=== PATIENT | female | born 1930 | race Caucasian/White ===

== ENCOUNTER 2017-12-08 11:05 | Emergency (ER) | payer MEDICARE, BC ==
[2017-12-08 11:24] VITALS: BP 142/79
--- NOTE | 2017-12-08 11:48 | UC ---
Lester Johnson Gabriel, scribed for Loida Trevino MD on 12/08/17 at 1135 . Cardiac HPI - HPI Summary HPI Summary: This patient is a 87 year old F presenting to [facility] accompanied by her with a chief complaint of shortness of breath and chest pain since yesterday morning. The patient rates the squeezing pain 4/10 in severity. Patient reports SOB, light headedness, nausea, decreased PO intake, confusion, and dizziness. Patient denies that symptoms are affecting her sleep. Pt was instructed to double her dose of excelon medication yesterday, her family believes this is effecting her. The patient is a poor historian and seems to be confused. Additionally her family has little to no knowledge of her history. Took 325mg of aspirin this morning. Stress test in 2011 done for evaluation of abnormal EKG; nuclear study was normal. - History of Current Complaint Chief Complaint: UCChestPain Stated Complaint: CHEST PAIN SOB Time Seen by Provider: 12/08/17 11:25 Hx Obtained From: Patient, Family/Sheet Turner Onset/Duration: Lasting Days, Still Present Timing: Constant Initial Severity: Mild Current Severity: Mild Pain Intensity: 4 Chest Pain Location: Diffuse Character: Pressure/Squeezing Associated Signs & Symptoms: Positive: Chest Pain, Dizziness, SOB - Risk Factors AMI/ACS Risk Factors: Sedentary Lifestyle - Allergy/Home Medications Allergies/Adverse Reactions: Allergies Allergy/AdvReac Type Severity Reaction Status Date / Time albuterol Allergy Unknown Verified 12/08/17 11:27 Reaction Details clarithromycin [From Biaxin] Allergy Unknown Verified 12/08/17 11:27 Reaction Details MS Cat Hair Extract Allergy Sneezing Verified 12/08/17 11:27 [Cat Hair Extract] MS Epinephrine [Epinephrine] Allergy Unknown Verified 12/08/17 11:27 Reaction Details MS Iodinated Contrast Media Allergy Unknown Verified 12/08/17 11:27 [CONTRAST DYE] Reaction Details MS Morphine [Morphine] Allergy Unknown Verified 12/08/17 11:27 Reaction Details MS Rofecoxib [From Vioxx] Allergy Unknown Verified 12/08/17 11:27 Reaction Details Penicillins Allergy Unknown Verified 12/08/17 11:27 Reaction Details petrolium Allergy Difficulty Uncoded 12/08/17 11:27 Breathing Home Medications: Home Medications Acetaminophen [Tylophen] 1 - 2 tab PO TID PRN 12/08/17 [History Confirmed ] Aspirin 1 tab PO DAILY 12/08/17 [History Confirmed 12/08/17] Cholecalciferol (Vitamin D3) [Vitamin D3] 1 tab PO DAILY 12/08/17 [History Confirmed 12/08/17] Pimavanserin Tartrate [Nuplazid] 2 tab PO QPM 12/08/17 [History Confirmed ] Polyethylene Glycol 3350* [Miralax*] 1 packet PO DAILY PRN 12/08/17 [History Confirmed 12/08/17] Rivastigmine CAP(NF) [Exelon (NF)] 2 cap PO BID 12/08/17 [History Confirmed ] Sertraline HCl [Zoloft] 1 tab PO DAILY 12/08/17 [History Confirmed 12/08/17] PMH/Surg Hx/FS Hx/Imm Hx Other Cardiovascular History: mitral valve disorder, palpitations Other Neurological History: Parkinsons - Surgical History Surgical History: Yes Surgery Procedure, Year, and Place: HYSTERECTOMY, APPENDECTOMY, DEVIATED SETUM, PROLAPSED BLADDER, T&A, CATARACTS BILATERAL - Family History Known Family History: Positive: Cardiac Disease, Hypertension - Social History Occupation: Retired Lives: With Family Alcohol Use: None Substance Use Type: None Smoking Status (MU): Never Smoked Tobacco Review of Systems Constitutional: Other - decreased PO intake Skin: Negative Eyes: Negative ENT: Negative Respiratory: Shortness Of Breath Cardiovascular: Chest Pain Gastrointestinal: Nausea Genitourinary: Negative Motor: Negative Neurovascular: Negative Musculoskeletal: Negative Neurological: Other - dizziness, light headedness, confusion Psychological: Negative Is Patient Immunocompromised?: No All Other Systems Reviewed And Are Negative: Yes Physical Exam Triage Information Reviewed: Yes Appearance: Ill-Appearing - Elderly woman, frail, Parkinsonian affect. Not acutely distressed., Pain Distress - mild Vital Signs: Initial Vital Signs Temp 99.5 F 12/08/17 11:16 Pulse 69 12/08/17 11:16 Resp 20 12/08/17 11:16 BP 142/79 12/08/17 11:16 Pulse Ox 98 12/08/17 11:16 Vital Signs Reviewed: Yes Eyes: Positive: Conjunctiva Clear ENT: Positive: Pharynx normal Neck: Positive: Supple, Nontender, No Lymphadenopathy Respiratory: Positive: Lungs clear, Normal breath sounds Cardiovascular: Positive: RRR, No Murmur, Pulses Normal Abdomen Description: Positive: Nontender, No Organomegaly, Soft Bowel Sounds: Positive: Present Neurological Exam: Other Neurological: Positive: Alert Psychological Exam: Other - flat affect. Diagnostics - EKG Cardiac Rate: NL Cardiac Rhythm: Sinus: New - at 68 BPM, Other Rhythm: New - no prolonged QTc , mild ST depression v4 v5, Ectopy: None ST Segment: Non-Specific - Differential Diagnoses - Chest Pain Differential Diagnosis/HQI/PQRI: Acute SC, ACS, Angina - Clinical Impression Provider Diagnoses: shortness of breath and chest pain with non-specific EKG changes. Transferred to ER for evaluation. Discharge - Discharge Plan Condition: Stable Disposition: TRANS HIGHER LVL OF CARE FAC Referrals: Ge Robbins MD [Primary Care Provider] - The documentation as recorded by the Lester harris Gabriel accurately reflects the service I personally performed and the decisions made by , Loida Trevino MD.
== END 2017-12-08 11:42 | disposition short-term general hospital (02) ==
LOC: UCEAST 11:05
DX: R06.02 Shortness of breath (principal); R07.9 Chest pain, unspecified; R94.31 Abnormal electrocardiogram [ECG] [EKG]; Z88.8 Allergy status to other drugs, medicaments and biological substances; Z88.1 Allergy status to other antibiotic agents; Z91.048 Other nonmedicinal substance allergy status; G20 Parkinson's disease
CPT/HCPCS: 93005; 99213; G0463

== ENCOUNTER 2017-12-08 12:11 | Emergency (ER) | payer MEDICARE, BC ==
--- NOTE | 2017-12-08 13:30 | RAD ---
INDICATION: Chest pain COMPARISON: Most recent comparison chest x-rays dated January 31, 2015 TECHNIQUE: Single AP portable view of the chest was obtained. FINDINGS: Image quality is compromised due to the relative inferiority of a portable chest x-ray. The heart and mediastinum exhibit normal size and contour. Again seen is mild calcified atherosclerosis overlying the arch of the aorta. The lungs are grossly clear. There is no evidence of a large pleural effusion. Visualized bones are normal for the patient's age. IMPRESSION: No radiographic evidence for acute cardiopulmonary abnormality on this portable chest x-ray.
[2017-12-08 13:39] LABS: ABS Basophils 0.1 10^3/ul (0-0.2); ABS Eosinophils 0.2 10^3/ul (0-0.6); ABS Monocytes 0.4 10^3/ul (0-0.8); ABS Nucleated RBC 0 10^3/ul; Eosinophil % 4.8 % (0-6); Hematocrit 36 % (35-47); Hemoglobin 12.2 g/dl (12.0-16.0); Lymphocyte % 21.5 % (25-47); Mean Corpuscular HGB Conc 34 g/dl (31-36); Mean Corpuscular Hemoglobin 30 pg (27-31); Mean Corpuscular Volume 88 fL (80-97); Mean Platelet Volume 8 um3 (7.4-10.4); Nucleated Red Blood Cells % 0; Platelet Count 196 10^3/ul (150-450); Red Blood Count 4.11 10^6/ul (4.0-5.4); Red Cell Distribution Width 15 % (10.5-15); White Blood Count 4.7 10^3/ul (3.5-10.8)
[2017-12-08 13:46] LABS: INR 0.97 (0.77-1.02)
[2017-12-08 13:59] LABS: EGFR Non-African American 52.9 (>60)
[2017-12-08 16:42] VITALS: BP 111/60
--- NOTE | 2017-12-08 21:32 | ED ---
Jaron Johnson Stephanie, scribed for Lebron Ronquillo MD on 12/08/17 at 1255 . HPI Chest Pain - HPI Summary HPI Summary: The pt is an 87 y/o F BIBA to the ED with c/o CP that began yesterday morning. Symptoms include SOB, L neck pain and dizziness. The pt reports going to [facility]. The pt states she is not currently having CP. - History of Current Complaint Chief Complaint: EDGeneral Time Seen by Provider: 12/08/17 12:22 Hx Obtained From: Patient, Family/Shine Worker Onset/Duration: Started Days Ago - 1, Still Present Timing: Intermittent Current Severity: None Pain Intensity: 0 Pain Scale Used: 0-10 Numeric Character: Tightness Aggravating Factor(s): Nothing Alleviating Factor(s): Nothing Associated Signs and Symptoms: Positive: Dizziness, Shortness of Breath, Other: - L neck pain - Allergy/Home Medications Allergies/Adverse Reactions: Allergies Allergy/AdvReac Type Severity Reaction Status Date / Time albuterol Allergy Unknown Verified 12/08/17 11:27 Reaction Details cat dander Allergy Unknown Verified 12/08/17 13:08 Reaction Details clarithromycin [From Biaxin] Allergy Unknown Verified 12/08/17 11:27 Reaction Details codeine Allergy Unknown Verified 12/08/17 13:12 Reaction Details epinephrine Allergy Unknown Verified 12/08/17 13:08 Reaction Details Iodinated Contrast- Oral and Allergy Unknown Verified 12/08/17 13:10 IV Dye Reaction Details morphine Allergy Difficulty Verified 12/08/17 13:09 Breathing Penicillins Allergy Unknown Verified 12/08/17 11:27 Reaction Details rofecoxib [From Vioxx] Allergy Unknown Verified 12/08/17 13:11 Reaction Details petrolium Allergy Difficulty Uncoded 12/08/17 11:27 Breathing Home Medications: Home Medications Acetaminophen [Acetaminophen Extra Strength] 500 - 1,000 mg PO TID PRN 12/08/17 [History Confirmed 12/08/17] Aspirin TAB* [Aspirin 325 MG TAB*] 325 mg PO DAILY 12/08/17 [History Confirmed 12/08/17] Cholecalciferol TAB* [Vitamin D TAB*] 1,000 unit PO DAILY 12/08/17 [History Confirmed 12/08/17] Pimavanserin Tartrate [Nuplazid] 34 mg PO BEDTIME 12/08/17 [History Confirmed ] Polyethylene Glycol 3350* [Miralax*] 17 gm PO DAILY 12/08/17 [History Confirmed 12/08/17] Rivastigmine CAP(NF) [Exelon (NF)] 3 mg PO QAM 12/08/17 [History Confirmed 12/08] Sertraline* [Zoloft*] 50 mg PO QAM 12/08/17 [History Confirmed 12/08/17] PMH/Surg Hx/FS Hx/Imm Hx Endocrine/Hematology History: Denies: Hx Diabetes Cardiovascular History: Denies: Hx Hypertension, Hx Pacemaker/ICD Respiratory History: Denies: Hx Asthma History: Denies: Hx Renal Disease Musculoskeletal History: Reports: Hx Osteoporosis Sensory History: Denies: Hx Hearing Aid Psychiatric History: Denies: Hx Panic Disorder - Surgical History Surgery Procedure, Year, and Place: HYSTERECTOMY, APPENDECTOMY, DEVIATED SETUM, PROLAPSED BLADDER, T&A, CATARACTS BILATERAL Infectious Disease History: No Infectious Disease History: Denies: Traveled Outside the [place] in Last 30 Days - Family History Known Family History: Positive: Cardiac Disease, Hypertension - Social History Occupation: Retired Lives: [facility] Alcohol Use: None Substance Use Type: Reports: None Smoking Status (MU): Never Smoked Tobacco Review of Systems Negative: Fever Positive: Chest Pain Positive: Shortness Of Breath Positive: Other - L neck pain Neurological: Other - dizziness All Other Systems Reviewed And Are Negative: Yes Physical Exam - Summary Physical Exam Summary: Appearance: The patient is well-nourished in no acute distress and in no acute pain. The pt seems confused. Skin: The skin is warm and dry and skin color reflects adequate perfusion. HEENT: The head is normocephalic and atraumatic. The pupils are equal and reactive. The conjunctivae are clear and without drainage. Nares are patent and without drainage. Mouth reveals moist mucous membranes and the throat is without erythema and exudate. The external ears are intact. The ear canals are patent and without drainage. The tympanic membranes are intact. Neck: the neck is supple with full range of motion and non-tender. There are no carotid bruits. There is no neck vein distension. Respiratory: Chest is non-tender. Lungs are clear to auscultation and breath sounds are symmetrical and equal. Cardiovascular: Heart is regular rate and rhythm. There is no murmur or rub auscultated. There is no peripheral edema and pulses are symmetrical and equal. Abdomen: The abdomen is soft and non-tender. There are normal bowel sounds heard in all four quadrants and there is no organomegaly palpated. Musculoskeletal: There is no back tenderness noted. Extremities are non-tender with full range of motion. There is good capillary refill. There is no peripheral edema or calf tenderness elicited. Neurological: Patient is alert and oriented to person, place and time. The patient has symmetrical motor strength in all four extremities. Cranial nerves are grossly intact. Deep tendon reflexes are symmetrical and equal in all four extremities. Psychiatric: The patient has an appropriate affect and does not exhibit any anxiety or depression. Triage Information Reviewed: Yes Vital Signs On Initial Exam: Initial Vitals Temp Pulse Resp BP Pulse Ox 97.7 F 70 16 172/75 99 12/08/17 12:15 12/08/17 12:15 12/08/17 12:15 12/08/17 12:15 12/08/17 12:15 Vital Signs Reviewed: Yes Diagnostics - Vital Signs Vital Signs Temp Pulse Resp BP Pulse Ox 12/08/17 12:19 73 21 98 12/08/17 12:18 172/75 12/08/17 12:15 97.7 F 70 16 172/75 99 - Laboratory Lab Results: Lab Results 12/08/17 12/08/17 12/08/17 Range/Units 13:30 13:30 13:30 WBC 4.7 (3.5-10.8) 10^3/ul RBC 4.11 (4.0-5.4) 10^6/ul Hgb 12.2 (12.0-16.0) g/dl Hct 36 (35-47) % MCV 88 (80-97) fL MCH 30 (27-31) pg MCHC 34 (31-36) g/dl RDW 15 (10.5-15) % Plt Count 196 (150-450) 10^3/ul MPV 8 (7.4-10.4) um3 Neut % (Auto) 63.8 (38-83) % Lymph % (Auto) 21.5 L (25-47) % Peach % (Auto) 8.1 H (0-7) % Eos % (Auto) 4.8 (0-6) % Baso % (Auto) 1.8 (0-2) % Absolute Neuts (auto) 3.0 (1.5-7.7) 10^3/ul Absolute Lymphs (auto) 1.0 (1.0-4.8) 10^3/ul Absolute Monos (auto) 0.4 (0-0.8) 10^3/ul Absolute Eos (auto) 0.2 (0-0.6) 10^3/ul Absolute Basos (auto) 0.1 (0-0.2) 10^3/ul Absolute Nucleated RBC 0 10^3/ul Nucleated RBC % 0 INR (Anticoag Therapy) (0.77-1.02) Sodium 140 (133-145) mmol/L Potassium 4.0 (3.5-5.0) mmol/L Chloride 106 (101-111) mmol/L Carbon Dioxide 28 (22-32) mmol/L Anion Gap 6 (2-11) mmol/L BUN 23 (6-24) mg/dL Creatinine 0.99 H (0.51-0.95) mg/dL Est GFR ( Amer) 68.1 (>60) Est GFR (Non-Af Amer) 52.9 (>60) BUN/Creatinine Ratio 23.2 H (8-20) Glucose 90 (70-100) mg/dL Lactic Acid 0.6 (0.5-2.0) mmol/L Calcium 9.9 (8.6-10.3) mg/dL Total Bilirubin 0.50 (0.2-1.0) mg/dL AST 19 (13-39) U/L ALT 13 (7-52) U/L Alkaline Phosphatase 57 (34-104) U/L Troponin I 0.00 (<0.04) ng/mL Total Protein 6.9 (6.4-8.9) g/dL Albumin 4.0 (3.2-5.2) g/dL Globulin 2.9 (2-4) g/dL Albumin/Globulin Ratio 1.4 (1-3) TSH 2.09 (0.34-5.60) mcIU/mL 12/08/17 12/08/17 Range/Units 13:30 15:47 WBC (3.5-10.8) 10^3/ul RBC (4.0-5.4) 10^6/ul Hgb (12.0-16.0) g/dl Hct (35-47) % MCV (80-97) fL MCH (27-31) pg MCHC (31-36) g/dl RDW (10.5-15) % Plt Count (150-450) 10^3/ul MPV (7.4-10.4) um3 Neut % (Auto) (38-83) % Lymph % (Auto) (25-47) % Peach % (Auto) (0-7) % Eos % (Auto) (0-6) % Baso % (Auto) (0-2) % Absolute Neuts (auto) (1.5-7.7) 10^3/ul Absolute Lymphs (auto) (1.0-4.8) 10^3/ul Absolute Monos (auto) (0-0.8) 10^3/ul Absolute Eos (auto) (0-0.6) 10^3/ul Absolute Basos (auto) (0-0.2) 10^3/ul Absolute Nucleated RBC 10^3/ul Nucleated RBC % INR (Anticoag Therapy) 0.97 (0.77-1.02) Sodium (133-145) mmol/L Potassium (3.5-5.0) mmol/L Chloride (101-111) mmol/L Carbon Dioxide (22-32) mmol/L Anion Gap (2-11) mmol/L BUN (6-24) mg/dL Creatinine (0.51-0.95) mg/dL Est GFR ( Amer) (>60) Est GFR (Non-Af Amer) (>60) BUN/Creatinine Ratio (8-20) Glucose (70-100) mg/dL Lactic Acid (0.5-2.0) mmol/L Calcium (8.6-10.3) mg/dL Total Bilirubin (0.2-1.0) mg/dL AST (13-39) U/L ALT (7-52) U/L Alkaline Phosphatase (34-104) U/L Troponin I 0.00 (<0.04) ng/mL Total Protein (6.4-8.9) g/dL Albumin (3.2-5.2) g/dL Globulin (2-4) g/dL Albumin/Globulin Ratio (1-3) TSH (0.34-5.60) mcIU/mL Result Diagrams: 12/08/17 13:30 12/08/17 13:30 Lab Statement: Any lab studies that have been ordered have been reviewed, and results considered in the medical decision making process. - Radiology CXR Xray Interpretation: No Acute Changes Radiology Interpretation Completed By: Radiologist - No radiographic evidence for acute cardiopulmonary abnormality on this portable chest x-ray. - EKG : Cardiac Rate: NL EKG Rhythm: Sinus Rhythm - 66 BPM EKG Interpretation: horizontal axis, nonspecific septal changes Chest Pain Course/Dx - Course Course Of Treatment: Ms. Dawson presented from [facility] with vague C/O. She has parkinson's dementia and the history is always difficult. She was started on Exelon 2 weeks ago and yesterday it was increased. She has had a decreased appetite for several days. Her W/U here was negative including two troponins. I spoke with Dr. Schuler who felt that the Exelon could be causing GI symptoms and recommended stopping it to see if she improves. - Diagnoses Provider Diagnoses: Chest pain Discharge - Discharge Plan Condition: Stable Disposition: HOME Patient Education Materials: Chest Pain (ED) Referrals: Ge Robbins MD [Primary Care Provider] - 3 Days The documentation as recorded by the Jaron harris Stephanie accurately reflects the service I personally performed and the decisions made by me, Lebron Ronquillo MD.
== END 2017-12-08 17:35 | disposition home or self-care (01) ==
LOC: ED 12:11
DX: R07.9 Chest pain, unspecified (principal); R42 Dizziness and giddiness; R06.02 Shortness of breath; M54.2 Cervicalgia
CPT/HCPCS: 36415; 71045; 80053; 83605; 84443; 84484; 85025; 85610; 93005; 99282

== ENCOUNTER 2019-01-18 18:53 | Inpatient (IN) | payer MEDICARE, BC ==
[2019-01-18] MEDS ORDERED: NS 0.9% 1000 ML** 1,000 ML IV ONE (18:56)
[2019-01-18] MEDS ORDERED: Metoprolol Tartrate IV* 1 MG/ML 5 ML VIAL IV ONE (18:59)
--- NOTE | 2019-01-18 19:02 | ED ---
Neurological HPI - HPI Summary HPI Summary: LEVEL 5 CAVEAT: HPI LIMITED DUE TO PT CONDITION, EXTREMIS. An 88 y/o F brought in by ambulance BLS presents to ED s/p unwitnessed fall at approx 1500 with stroke-like symptoms onset [employer] DEVELOPER. Her was in the other room and heard her fall. After the fall, the patient took a 30 minute nap afterwards. Per EMS: pt was c/o of R-sided arm and hematoma to R-sided forehead , but her speech was fine; however, when EMS unloaded pt at ED, they noticed the patient's condition had declined: she had gaze deviation, L-sided facial droop, slurred speech. PMHx: Parkinsons. No blood thinners. 1849: ED provider met EMS and patient immediately upon arrival in ED. 1854: Code Alvino called. 1904: ED provider confirmed bleed on CT when taking scan. - History of Current Complaint Stated Complaint: FALL/HEAD AND SHOULDER PAIN PER EMS Time Seen by Provider: 01/18/19 18:56 Hx Obtained From: Family/Integrated Circuit Design Engineer, EMS Hx From Patient Unobtainable Due To: Extremis Onset/Duration: Sudden Onset, Still Present Timing: Constant Onset Severity: Severe Current Severity: Severe Character: Impaired Speech, Visual Changes, Other: - facial droop - Allergy/Home Medications Allergies/Adverse Reactions: Allergies Allergy/AdvReac Type Severity Reaction Status Date / Time albuterol Allergy Unknown Verified 01/18/19 19:35 Reaction Details cat dander Allergy Unknown Verified 01/18/19 19:35 Reaction Details clarithromycin [From Biaxin] Allergy Unknown Verified 01/18/19 19:35 Reaction Details codeine Allergy Unknown Verified 01/18/19 19:35 Reaction Details epinephrine Allergy Unknown Verified 01/18/19 19:35 Reaction Details Iodinated Contrast- Oral and Allergy Unknown Verified 01/18/19 19:35 IV Dye Reaction Details morphine Allergy Difficulty Verified 01/18/19 19:35 Breathing Penicillins Allergy Unknown Verified 01/18/19 19:35 Reaction Details rofecoxib [From Vioxx] Allergy Unknown Verified 01/18/19 19:35 Reaction Details petrolium Allergy Difficulty Uncoded 12/08/17 11:27 Breathing Home Medications: Home Medications QUEtiapine TAB* [Seroquel 25 MG TAB*] 25 mg PO EVERY OTHER DAY 01/18/19 [ History Confirmed 01/18/19] QUEtiapine TAB* [Seroquel 25 MG TAB*] 50 mg PO BEDTIME 01/18/19 [History Confirmed 01/18/19] PMH/Surg Hx/FS Hx/Imm Hx Previously Healthy: No - Parkinson's Endocrine/Hematology History: Denies: Hx Diabetes Cardiovascular History: Denies: Hx Hypertension, Hx Pacemaker/ICD Respiratory History: Denies: Hx Asthma History: Denies: Hx Renal Disease Musculoskeletal History: Reports: Hx Osteoporosis Sensory History: Denies: Hx Hearing Aid Psychiatric History: Denies: Hx Panic Disorder - Surgical History Surgery Procedure, Year, and Place: HYSTERECTOMY, APPENDECTOMY, DEVIATED SETUM, PROLAPSED BLADDER, T&A, CATARACTS BILATERAL - Family History Known Family History: Positive: Cardiac Disease, Hypertension - Social History Occupation: Retired Lives: With Family Alcohol Use: None Substance Use Type: Reports: None Smoking Status (MU): Never Smoked Tobacco Review of Systems - ROS Summary Review of Systems Summary: LEVEL 5 CAVEAT: ROS LIMITED DUE TO PT CONDITION, EXTREMIS. Neurological: Other - gaze deviation, L-sided facial droop Positive: Slurred Speech All Other Systems Reviewed And Are Negative: No Physical Exam - Summary Physical Exam Summary: Constitutional: Well-developed, Well-nourished, Alert. (-) Distressed, No obvious traumatic injuries Skin: Warm, Dry HENT: Normocephalic; Atraumatic Eyes: Conjunctiva normal Neck: Musculoskeletal ROM normal neck. (-) JVD, (-) Stridor, (-) Tracheal deviation Cardio: Rhythm regular, rate normal, Heart sounds normal; Intact distal pulses; The pedal pulses are 2+ and symmetric. Radial pulses are 2+ and symmetric. (-) Murmur Pulmonary/Chest wall: Effort normal. (-) Respiratory distress, (-) Wheezes, (-) Rales Abd: Soft. (-) Tenderness, (-) Distension, (-) Guarding, (-) Rebound Musculoskeletal: (-) Edema, (-) Bony tenderness, FROM of all extremities Lymph: (-) Cervical adenopathy Neuro: L sided hemiparesis, forced gaze deviation to R Psych: Mood and affect Normal Triage Information Reviewed: Yes Vital Signs Reviewed: Yes - Alphonse Coma Scale Best Eye Response: 4 - Spontaneous Best Motor Response: 6 - Obeys Commands Best Verbal Response: 2 - Incomprehensible Words Coma Scale Total: 12 Diagnostics - Laboratory Result Diagrams: 01/18/19 19:01 01/18/19 19:01 Lab Statement: Any lab studies that have been ordered have been reviewed, and results considered in the medical decision making process. - CT BRAIN CT CT Interpretation Completed By: Radiologist Summary of CT Findings: IMPRESSION: 1. Within the right cerebral hemisphere, there is a large hyperdense acute hematoma with surrounding edema. This hematoma measures 7.4 x 3.9 x 7.5 cm. Differential considerations include post- traumatic hemorrhage, hemorrhagic conversion of infarction, and hypertensive bleed, although additional hemorrhagic pathology cannot be excluded. A follow- up head CT in 12-24 hours is recommended. 2. Patchy areas of subarachnoid/intra -axial hemorrhage are identified within the bilateral cerebral hemispheres. 3. There is 6 mm of midline shift to the left. 4. Soft tissue swelling/hematoma of the right frontal scalp. 5. There are scattered foci of hypodensity, likely representing small vessel ischemic disease in a patient this age. 6. Paranasal sinus disease is noted above. ED provider has reviewed this report. C SPINE CT Interpretation Completed By: Radiologist Summary of CT Findings: IMPRESSION: 1. No acute cervical spine fracture or subluxation. 2. The cervical lordosis is straightened. 3. Spondylosis is visualized at multiple cervical levels. 4. There is an 8mm hypodense nodule within the right thyroid lobe. ED provider has reviewed this report. CHEST CT CT Interpretation Completed By: Radiologist Summary of CT Findings: IMPRESSION: 1. The inferior right scapula is fractured. Clinical correlation is. recommended. 2. An air-fluid level is visualized within the esophagus, with mild esophageal distention. This is suggestive of decreased motility or reflux. 3. Atelectatic change is identified within the both lower lobes, with minimal atelectatic change in the left upper lobe. 4. Within the left upper lobe of the lung, there is a 2-3 mm nodule. See recommendations below. 5. Old fractures are identified of the right fifth and seventh ribs. 6. Additional findings described above. ED provider has reviewed this report. - EKG 1917 Cardiac Rate: NL - 92 bpm EKG Rhythm: Sinus Rhythm Summary of EKG Findings: no STEMI NIH Scale - NIH Scale Level of Consciousness: Alert/Keenly Responsive Ask Patient the Month and His/Her Age: Neither Correct/Aphasic Ask Pt to Open/Close Eyes and Croze Cutter/Release Non-Paretic Hand: One Correctly Best Gaze (Only Horizontal Eye Movement): Forced Deviation Visual Field Testing: Bilateral Hemianopia Facial Paresis-Pt to Smile & Close Eyes or Grimace Symmetry: Complete Paralysis Motor Function - Right Arm: No Drift-Holds 10 Seconds Motor Function - Left Arm: No Movement Motor Function - Right Leg: No Drift-Holds 10 Seconds Motor Function - Left Leg: No Movement Limb Ataxia-Must be out of Proportion to Weakness Present: Present in Two Limbs Sensory (Use Pinprick to Test Arms/Legs/Trunk/Face): Severe to Total Loss Best Language (Describe Picture, Name Items): Mute/Global Aphasia Dysarthria (Read Several Words): Slurs Some Words Extinction and Inattention: Profound Herberth-Inattention Total Score: 29 Re-Evaluation - Re-Evaluation 1 Re-Evaluation Time: 19:16 Change: Unchanged Comment: Discussing pt's end-of-life wishes with family. Per family, pt had stated she did not want resuscitation. 2 Re-Evaluation Time: 20:30 Change: Unchanged Comment: Going over MOLST form with family. Pt sleeping, she responds to painful stimulus. L-sided hemiparesis remains. 3 Re-Evaluation Time: 21:50 Change: Unchanged Comment: Family states they want patient to be comfortable. Still awaiting Dr. Ortega, neuro surgery, to come see patient and family. 4 Re-Evaluation Time: 21:58 Change: Unchanged Comment: Completing MOLST form. Fifth Eval Re-Evaluation Time: 22:05 Comment: somnolent on 2154 eval, poss due to progression and/or reglan Course/Dx - Course Course Of Treatment: Pt is an 88 y/o F brought in by ambulance s/p unwitnessed fall onset approx 1700. EMS states pt was c/o R-sided back and RUE pain, but upon arrival at ED, EMS made provider aware that patient's condition was deteriorating, and showing stroke-like symptoms. 1855: Code De Oliveira called. PE found L-sided hemiparesis, forced gaze deviation to R. Pt was slurring her speech. NIH: 29. GCS: 12. 1905: Visualized bleed on CT. Attempted to discern advanced directives from family, health care proxy form was unclear, felt that prognosis and options could be better discussed when neurosurgeon arrives. Family discussed with me that patient was poorly ambulatory, had severe dementia with hallucinations, and generally poor quality of life at baseline. 1914: Consulted with Dr. Ortega, neuro surg, who feels surgery is most likely contraindicated given her advanced directives. He is currently operating , will see pt in ED after his current case. I did discuss at length three times with family members, including the , and sons and daughter. We discussed the patient's advanced rectus, also her baseline functional status which was poor. We discussed the most significant femurs that she did not want any heroic measures, did not want any artificial life support. The family uniformly felt that she would not want invasive procedures. We came to a joint understanding that the patient would want comfort care measures. A MOLST was completed that reflects these wishes. I did discuss with Dr. Ortega, also with Dr. Kamille West, both of whom will consult on the patient tonight. - Diagnoses Provider Diagnoses: Intracranial hemorrhage During the Visit The Following Alert/Code Occurred: Meenakshi Marsh - Called at 1854 - Physician Notifications Discussed Care Of Patient With: Amelia Suero - neuro surgery Time Discussed With Above Provider: 19:08 Instructed by Provider To: Other - Made OR nurse aware of large cerebral hemorrhage. At 1914, Jordan returned call: Feels surgery is most likely contraindicated given her advanced directives. He is currently operating, will see pt in ED after his current case - Critical Care Time Critical Care Time: 30-74 min Discharge - Sign-Out/Discharge Documenting (check all that apply): Patient Departure Patient Received Moderate/Deep Sedation with Procedure: No - Discharge Plan Condition: Critical Disposition: ADMITTED TO [facility] Referrals: Ge Robbins MD [Primary Care Provider] - - Billing Disposition and Condition Condition: CRITICAL Disposition: Admitted to [facility] - Attestation Statements Document Initiated by Scribe: Yes Documenting Scribe: Denise Medley Provider For Whom Scribe is Documenting (Include Credential): Dr. Ross Ramirez MD Scribe Attestation: I, Denise Medley, scribed for Dr. Ross Ramirez MD on 01/18/19 at 2206. Scribe Documentation Reviewed: Yes Provider Attestation: The documentation as recorded by the scribe, Denise Medley accurately reflects the service I personally performed and the decisions made by me, Dr. Ross Ramirez MD Status of Scribe Document: Viewed
--- OUTSIDE RECORDS SUMMARY | 2019-01-18 19:02 | XMS REPORT | Continuity of Care Document ---
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 Active Onset: 01/14/2012 Hyperlipidemia Christina Reeves M.D. Active Onset: 01/14/2012 Electrocardiogram abnormal Christina Reeves M.D. Active Onset: 01/14/2012 Chest pain Christina Reeves M.D. Active Family History Date Family Member(s) Observation Comments General Cancer General Hypertension General Heart Disease Father due to Unknown Causes () Mother due to Cancer () Social History Type Date Description Comments Sex Unknown ETOH Use Occasionally consumes alcohol ETOH Use Denies alcohol use ETOH Use Occasionally consumes alcohol Tobacco Use Start: Unknown Patient has never smoked Recreational Drug Use Denies Drug Use Smoking Status Reviewed: 01/10/19 Patient has never smoked Allergies, Adverse Reactions, Alerts Date Description Reaction Status Severity Comments 01/14/2012 Penicillin Active 01/14/2012 Albuterol Active 01/14/2012 Epinephrine Active 01/14/2012 vioxx Active 01/14/2012 contrast dye Active 01/14/2012 Codeine Active 01/14/2012 Morphine Active 02/04/2012 Perfume Active Medications Medication Date Status Form Strength Qnty SIG Indications Ordering Provider Seroquel 01/10/ Active Tablets 25mg 30tab one every R44.1 Quentin Carter 2018 s night at [place], bedtime for M.D. 1 week then 2 qhs Nuplazid 08/17/ Active Capsules 34mg 90cap 1 tab by Quentin Carter 2017 s mouth every , day M.D. Sertraline HCL 06/28/ Active Tablets 25mg 90tab 3 by mouth Quentin Carter 2017 s every day Jaxon Schuler. Carbidopa-Levod 06/28/ Active Tablets 25-100mg 90tab 1 po qam pc G20 Quentin burns 2018 s for 1 wk Ganga, then 1 bid M.D. pc for 1 wk then 1 tid pc Flonase / Active Suspension 50mcg/Act 1unit 1 Unknown 0000 s intranasal puff to each nostril daily prn Vit D3 00/ Active 1000Iu one po qd Unknown 0000 Miralax / Active Powder 3350NF 17 gm every Unknown 0000 day mixed w/ 8 oz water/juice prn Aspirin / Active Tablets DR 325mg 4 tablets Unknown 0000 daily. Acetaminophen 00/ Active Tablets 500mg 1-2 tabs 3x Unknown 0000 a day as needed Sertraline HCL 05/26/ Hx Tablets 25mg 270ta 3 by mouth Quentin Carter 2018 - bs every day Ganga, 06/28/ M.D. 2018 Carbidopa-Levod 04/03/ Hx Tablets 25-100mg 90tab 1 po qam pc G20 Quentin burns 2018 - s for 1 wk Ganga, 04/03/ then 1 bid M.DDianna 2018 pc for 1 wk then 1 tid pc Rivastigmine 11/18/ Hx Capsules 1.5mg 120ca 2 tablets Quentin Carter Tartrate 2018 - ps bid-family Ganga, 02/07/ is unsure M.D. 2018 if she is still taking this.. Nuplazid 08/05/ Hx Tablets 17mg 60tab 2 po qd Quentin Carter 2016 Ganga, 08/17/ M.DDianna 2017 Quetiapine 05/25/ Hx Tablets 25mg 60tab 2 tabs by R44.1 Quentin Richmond 2016 mouth every Ganga, 08/17/ night at M.D. 2017 bedtime Toprol XL 02/03/ Hx Tablets ER 25mg 30tab 1 po qd Qutaybeh 2011 - 24HR s S. 05/25/ Leandro Heath M.D. Estradiol / Hx Tablets 0.5mg 90tab 1 po qd Unknown 0000 - s 2016 Trazodone HCL / Hx Tablets 50mg 30tab 1/2 tablet Unknown 0000 - s at bedtime 11/18/ as needed 2018 Omeprazole / Hx Capsules DR 20mg 90cap 1 po qd Unknown 0000 - s 2016 Sertraline HCL / Hx Tablets 25mg 90tab 2 by mouth Quentin Carter - s every day Ganga, 05/26/ (50MG) M.DDianna 2017 Immunizations Description No Information Available Vital Signs Date Vital Result Comment 01/10/2019 11:30am Height 59 inches 4'11" Weight 97.12 lb Heart Rate 80 /min BP Systolic 120 mmHg BP Diastolic 66 mmHg BMI (Body Mass Index) 19.6 kg/m2 06/28/2018 2:58pm Height 59 inches 4'11" Weight 102.00 lb Heart Rate 72 /min BP Systolic 118 mmHg BP Diastolic 66 mmHg Respiratory Rate 16 /min BMI (Body Mass Index) 20.6 kg/m2 04/03/2018 9:48am Height 59 inches 4'11" Weight 100.00 lb Heart Rate 80 /min BP Systolic 136 mmHg BP Diastolic 68 mmHg Respiratory Rate 16 /min BMI (Body Mass Index) 20.2 kg/m2 02/08/2018 1:50pm Height 59 inches 4'11" Weight 100.00 lb Heart Rate 80 /min BP Systolic Sitting 126 mmHg BP Diastolic Sitting 70 mmHg Respiratory Rate 16 /min BMI (Body Mass Index) 20.2 kg/m2 11/02/2017 1:45pm Height 59 inches 4'11" Weight 100.00 lb Heart Rate 76 /min BP Systolic 138 mmHg BP Diastolic 76 mmHg Respiratory Rate 14 /min BMI (Body Mass Index) 20.2 kg/m2 09/14/2017 2:22pm Height 59 inches 4'11" Weight 100.00 lb Heart Rate 64 /min BP Systolic 132 mmHg BP Diastolic 78 mmHg Respiratory Rate 14 /min BMI (Body Mass Index) 20.2 kg/m2 07/29/2017 3:04pm Height 59 inches 4'11" Weight 100.00 lb Heart Rate 80 /min BP Systolic Sitting 168 mmHg BP Diastolic Sitting 94 mmHg Respiratory Rate 16 /min BMI (Body Mass Index) 20.2 kg/m2 05/25/2017 9:41am Height 59 inches 4'11" Weight 101.00 lb Heart Rate 84 /min BP Systolic Sitting 136 mmHg BP Diastolic Sitting 80 mmHg Respiratory Rate 14 /min BMI (Body Mass Index) 20.4 kg/m2 02/04/2012 8:15am Height 59 inches 4'11" Weight 116.00 lb Heart Rate 76 /min BP Systolic 118 mmHg BP Diastolic 66 mmHg BMI (Body Mass Index) 23.4 kg/m2 01/14/2012 2:35pm Height 59 inches 4'11" Weight 115.00 lb Heart Rate 71 /min BP Systolic Sitting 138 mmHg L BP Diastolic Sitting 62 mmHg L BMI (Body Mass Index) 23.2 kg/m2 Results Description No Information Available Procedures Date Code Description Status 02/13/2018 81229 EKG, Interpretation Only Completed 01/20/2012 80809 Holter Monitor Review (24 hr)dr review & interp only Completed 01/20/2012 82415 Treadmill Interp/Report Only Completed 01/20/2012 77332 Stress Test Supervsn W/Out I/R Completed 01/18/2012 93749 Color Flow Doppler/Interp & Reprt Completed 01/18/2012 10660 Pulse Wave/Continuous-Interp.RPT Completed 01/18/2012 99737 ECHO Transthorasic Realtime 2D W Doppler & Color Flow Hosp Completed 01/14/2012 26072 EKG Tracing & Interpretation Completed 10/27/2010 66016 ECHO Transthoracic, Real-Time 2D With Doppler And Color Completed Flow 10/22/2010 18063 Treadmill Interp/Report Only Completed 10/22/2010 89999 Stress Test Supervsn W/Out I/R Completed 10/19/2010 14066 ECHO Stress Test Incl Perf Contiuous ekg Monitoring W/Phys Completed Superv Encounters Type Date Location Provider Dx Diagnosis Office Visit 06/28/2018 [facility] Quentin Schuler Mira Parkinson' s 2:45p [facility] disease R44.1 Visual hallucinations Office Visit 04/03/2018 9:45a [facility] Haroon Carter [facility] M.D. disease R44.1 Visual hallucinations Z79.899 Other addiction therapist (current) drug therapy Office Visit 02/08/2018 1:45p [facility] Haroon Carter G20 [facility] M.D. disease R44.1 Visual hallucinations Z79.899 Other addiction therapist (current) drug therapy Office Visit 11/02/2017 Clay Carter R44.1 Visual 1:45p Haroon Schuler M.D. hallucinations [facility] [place] [id number] Parkinson's disease Office Visit 09/14/2017 Clay Carter R44.1 Visual 2:30p Neurologic Fercho Schuler hallucinations [facility] G2 Parkinson's disease Office 07/29/2017 Neurohospitalist Quentin Carter R44.1 Visual Visit 2:45p Clinic Fercho Schuler hallucinations [facility] Parkinson's disease Office Visit 05/25/2017 10:00a [facility] Haroon Gar [facility] M.D. disease R44.1 Visual hallucinations Office Visit 02/04/2012 8:40a [facility] Christina S. 786.50 Pain Chest Fercho Reeves Unspec 272.4 Hyperlipidemia Other Unspec 427.69 Premature Beats Other 424.0 Mitral Valve Disorder Office 01/20/2012 Clay Vasquez S. 794.31 Electrocardiogram Visit 9:30a Savannah Reeves M.D. (ECG) (EKG) Abnormal 786.05 Shortness Of Breath Office Visit 01/14/2012 2:40p [facility] Christina S. 786.50 Pain Hyun Reeves M.D. Unspec 794.31 Electrocardiogram (ECG) (EKG) Abnormal 272.4 Hyperlipidemia Other Unspec 427.69 Premature Beats Other Office Visit 10/19/2010 3:30p [facility] Qutaybeh S. 786.05 Shortness Of Fercho Reeves Breath 786.50 Pain Chest Unspec 272.4 Hyperlipidemia Other Unspec Plan of Treatment Future Appointment(s):03/21/2019 9:45 am - Quentin Schuler M.D. at [facility]01/10/2019 - Quentin Schuler M.D.R44.1 Visual hallucinationsNew Medication:Seroquel 25 mg - one every night at bedtime for 1 week then 2 qhsFollow up:1-2 monthsRecommendations:decrease nuplazid to 1 tab a day for 1 week then stop Nuplazid. The following night start Seroquel ( quetiapine) and follow directions on the uikhaG71.83 Dementia with Lewy usjpavY77.0 Anorexia
[2019-01-18 19:13] LABS: ABS Basophils 0.1 10^3/ul (0-0.2); ABS Eosinophils 0.1 10^3/ul (0-0.6); ABS Lymphocytes 1.2 10^3/ul (1.0-4.8); ABS Monocytes 0.9 10^3/ul (0-0.8); ABS Neutrophils 8.8 10^3/ul (1.5-7.7); ABS Nucleated RBC 0 10^3/ul; Eosinophil % 1.1 %; Hematocrit 34 % (33-41); Hemoglobin 11.3 g/dL (12.0-16.0); Lymphocyte % 11.2 %; Mean Corpuscular HGB Conc 33 g/dL (31-36); Mean Corpuscular Hemoglobin 29 pg (27-31); Mean Corpuscular Volume 88 fL (80-97); Mean Platelet Volume 8.4 fL (7.4-10.4); Nucleated Red Blood Cells % 0; Platelet Count 245 10^3/uL (150-450); Red Blood Count 3.86 10^6 /uL (3.70-4.87); Red Cell Distribution Width 15 % (10.5-15); White Blood Count 11.1 10^3/uL (3.5-10.8)
[2019-01-18] MEDS ORDERED: levETIRAcetam 1000MG IVPREMIX* 1,000 MG/100 ML BAG IVPB ONE (19:15)
[2019-01-18 19:19] LABS: Activated Partial Thrombo Time 25.4 seconds (26.0-36.3); INR 0.94 (0.77-1.02)
[2019-01-18 19:28] LABS: Albumin 3.9 g/dL (3.2-5.2); Albumin/Globulin Ratio 1.1 (1-3); BUN/Creatinine Ratio 37.1 (8-20); Calcium 9.6 mg/dL (8.6-10.3); EGFR African American 59.7 (>60); EGFR Non-African American 49.3 (>60); Globulin 3.4 g/dL (2-4); HDL Cholesterol 61.6 mg/dL; Potassium 4.3 mmol/L (3.5-5.0); Total Bilirubin 0.4 mg/dL (0.2-1.0); Total Protein 7.3 g/dL (6.4-8.9)
[2019-01-18 19:30] LABS: Troponin I 0.01 ng/mL (<0.04)
[2019-01-18] MEDS ORDERED: Ondansetron INJ* 2 MG/ML VIAL IV ONE (19:51)
[2019-01-18] MEDS ORDERED: Metoclopramide IV* 5 MG/ML 2 ML VIAL ONE (21:32)
[2019-01-18] MEDS ORDERED: Metoclopramide IV* 5 MG/ML 2 ML VIAL IV SLOW PU ONE (21:34)
[2019-01-18] MEDS ORDERED: LORazepam INJ* 2 MG/ML 1 ML VIAL IV PUSH PRN (23:11)
[2019-01-18] MEDS ORDERED: Ondansetron INJ* 2 MG/ML VIAL IV PRN (23:11)
[2019-01-18] MEDS ORDERED: Acetaminophen SUPP* 650 MG SUPP PR PRN (23:11)
[2019-01-18] MEDS ORDERED: HYDROmorphone INJ1* 1 MG/ML SYRINGE IV SLOW PU PRN (23:12)
[2019-01-18 23:38] VITALS: BP 113/60
[2019-01-19] MEDS ORDERED: Scopolamine 1.5 mg* PATCH TRANSDERM SCH
--- NOTE | 2019-01-19 01:31 | HP ---
CC: Dr. Robbins * HISTORY AND PHYSICAL: DATE OF ADMISSION: 01/18/19 TIME OF EVALUATION: 2300 PRIMARY CARE PHYSICIAN: Dr. Robbins. CHIEF COMPLAINT: Fall and unresponsiveness. HISTORY OF PRESENT ILLNESS: This is an 88-year-old female with past medical history of end-stage Parkinson's, who presented to the emergency room after having a significant fall. The , the [id number], the 4 sons, and the daughter are all at the bedside who provided the history. States that she has been declining over the past several months, does not recognize people, falling daily, dependent of all her ADLs, having very minimal mobility as well. Decrease in appetite, mainly drinking Ensure. The states today she had an insignificant fall in the kitchen around 5 p.m., complained of right shoulder pain and went down and took a nap. Around 5:30 to 6 o'clock, they noted she was not right. When EMS arrived, they noted a left facial droop, slurred speech, and right side gaze deviation. At that time, on arrival to the emergency room, mic figueroa was called and her head CT was read as large hyperdense acute hematoma with surrounding edema measuring 7.[address] Suero was consulted. Due to the patient's poor quality of life and functional status prior to her arrival and now with rapid deterioration of her neurologic status, the family decided to make her comfort care. The patient, while in her short stay in the emergency room, became more unresponsive, vomiting, and gurgling respirations. As mentioned, due to her unresponsiveness , unable to get a review of systems. The patient was given Zofran 8 mg, Lopressor 5 mg, Reglan 10 mg, and 1000 mg of Keppra. PAST MEDICAL HISTORY: 1. Parkinson's with behavioral disturbance. 2. Depression. 3. Osteoporosis. MEDICATIONS: 1. Seroquel 25 mg every other day. 2. 50 mg at bedtime. 3. MiraLAX 17 g daily as needed. 4. Tylenol 500 to 1000 three times a day as needed. 5. Zoloft 50 mg daily. 6. Vitamin D 1000 units daily. 7. Aspirin 325 mg daily. ALLERGIES: ALBUTEROL, cat dander, CLARITHROMYCIN, CODEINE, EPINEPHRINE, CONTRAST, MORPHINE, PENICILLIN, VIOXX, petroleum. FAMILY HISTORY: Reviewed and noncontributory. SOCIAL HISTORY: As mentioned. The patient lives at home with her , 5 children and in-laws who help with her, she is dependent on all her ADLs. No history of smoking, alcohol, or illicit drug use. Her healthcare proxy is her Pb and her son Quentin. Code status: Her MOLST form was completed this evening to be DNR/DNI, comfort measures only. REVIEW OF SYSTEMS: Unable to be obtained due to the patient being unresponsive. PHYSICAL EXAMINATION GENERAL: The patient is in no acute distress, resting comfortably, intermittent gurgling respiration sound, shallow respirations. VITAL SIGNS: Temp 97.9, pulse rate 26, respiratory rate 19, oxygen saturation is 91% on 6 L, blood pressure 137/79. HEENT: Head: Normocephalic. Pupils are fixed and nonreactive. Conjunctivae anicteric. Oropharynx: Unable to visualize oropharynx. NECK: Supple. No lymphadenopathy. RESPIRATORY: Diminished breath sounds. Clear respiratory effort. CARDIAC: Regular rate and rhythm. Soft systolic murmur heard throughout. ABDOMEN: Soft, nontender, nondistended. EXTREMITIES: Her right upper extremity is spastic, not moving any extremities. Not following any commands, unresponsive to voice and tactile stimuli. DIAGNOSTIC STUDIES/LAB DATA: White count 11.1, hemoglobin 11.3, hematocrit 34 , platelets 245, INR is 0.94. Sodium 139, potassium 4.3, chloride 104, bicarb 26, BUN 39, creatinine 1.05, glucose 123. Radiographic Data: Within the right cerebral hemisphere, there is a large hyperdense acute hematoma with surrounding edema. This hematoma measures 7.4 x 3.9 x 7.5. Differential considerations include posttraumatic hemorrhage, hemorrhagic conversion of infarction, and hypertensive bleed, although additional hemorrhagic pathology cannot be excluded. Patchy areas of subarachnoid intraaxial hemorrhage are identified within the bilateral cerebral hemispheres, 6 mm midline shift, soft tissue swelling, hematoma of the right frontal scalp. There are scattered foci of hypodensity, likely represent small vessel ischemic disease in the patient. ASSESSMENT: This is an 88-year-old female with past medical history of end- stage Parkinson's, who presents after having a fall, found to have a large hyperdense intraparenchymal bleed. 1. Intraparenchymal hemorrhage. Assessment: The family and the have decided to make the patient comfort care. She is unresponsive. Discussed comfort measures, admitting her with symptom control including Ativan as needed. We will do Dilaudid in the setting of her MORPHINE allergy as needed for work of breathing, although she appears comfortable with no work of breathing. We will start her on scopolamine patch for increased secretions. Family has requested a diesel engine mechanic apprentice to come in. I do not think the patient is stable enough to be transferred out at this time. Next 24 hours will determine if she is stable enough to be transferred out to hospice and comfort measures. 2. DVT prophylaxis not indicated. 3. Diet: Unrestricted. 4. Code status as discussed, comfort measure. PATIENT TIME: Greater than 60 minutes was spent doing the history and physical , more than half the time spent in direct patient contact. [id number]/CPS #: [id number] BAN
[2019-01-19] MEDS ORDERED: oxyCODONE ORAL.SOLN* 5 MG/5 ML UDC PO PRN (08:35)
--- NOTE | 2019-01-19 12:10 | PN ---
Subjective Date of Service: 01/19/19 Interval History: Patient is not arousable and unable to participate in history. The patient's , her children, and their spouses are at bedside. They report that the patient has not awoken from sleep nor shown signs of discomfort or pain. She has appeared comfortable since her admission. They mention that she feels warm and ask if her temperature can be taken once to check. Objective Active Medications: Acetaminophen (Tylenol Supp*) 650 mg HI Q4H PRN PRN Reason: FEVER Hydromorphone HCl (Dilaudid Inj1s*) 0.5 mg IV SLOW PU Q2H PRN PRN Reason: PAIN Lorazepam (Ativan Inj*) 0.5 mg IV PUSH Q4H PRN PRN Reason: Anxiety/Agitation Ondansetron HCl (Zofran Inj*) 4 mg IV Q6H PRN PRN Reason: NAUSEA/VOMITING Oxycodone HCl (Oxycodone Oral.Soln*) 5 mg PO Q6H PRN PRN Reason: Pain/SOB Pharmacy Profile Note (Scopolamine Patch Remove*) 1 note PATCH OFF .AFTER 72 HOURS BELL Scopolamine (Transderm-Scop 1.5 Mg Patch*) 1 patch TRANSDERM Q72H BELL Last Admin: 01/19/19 00:45 Dose: 1 patch Vital Signs - 8 hr 01/19/19 01/19/19 01/19/19 05:00 05:02 06:00 Temperature Respiratory 18 20 21 Rate 01/19/19 01/19/19 08:35 08:36 Temperature 100 F 99.7 F Respiratory Rate Oxygen Devices in Use Now: None Appearance: Elderly white female asleep in hospital bed, appearing comfortable and in NAD Eyes: - - unable to assess Ears/Nose/Mouth/Throat: Mucous Membranes Moist Neck: NL Appearance and Movements; NL JVP Respiratory: Symmetrical Chest Expansion and Respiratory Effort, Clear to Auscultation Cardiovascular: NL Sounds; No Murmurs; No JVD, RRR Abdominal: - - abdomen soft and nondistended Extremities: No Edema Skin: No Rash or Ulcers, - - skin is warm, dry, intact Neurological: - - patient is not arousable to voice or touch Result Diagrams: 01/18/19 19:01 01/18/19 19:01 Assess/Plan/Problems-Billing Assessment: 88 yo white female with PMHx parkinson's with behavior disturbance, depression, and osteoporosis was brought to the ED by EMS with facial droop, slurred speech and gaze deviation. In the ED she became increasingly unresponsive and was found to have intraparenchymal brain hematoma 7.4x3.9x7.5 cm. Patient's family placed the patient on comfort measures only. - Patient Problems (1) Intraparenchymal hematoma of brain Code(s): S06.360A - TRAUM HEMOR CEREB, W/O LOSS OF CONSCIOUSNESS, INIT SNOMED Code(s): 799679183 Comment: -patient fell in home and later presented to ED with neurological sxs. CT brain confirmed intraparenchymal hematoma size 7.4x3.9x7.5 cm -neurosurgery was consulted and family placed patient on comfort measures -palliative consult placed -given patient's morphine allergy, dilaudid is used as IV prn pain control; if pt loses IV access oxycodone oral solution has been ordered prn (2) Comfort measures only status Code(s): Z51.5 - ENCOUNTER FOR PALLIATIVE CARE SNOMED Code(s): 33288228331204 Comment: -temperature has been checked per family's request and pt was without a fever. The family was assisted by nursing staff in use of the thermostat if desired (3) DVT prophylaxis Code(s): OHX0239 - SNOMED Code(s): 776751570 Comment: -not indicated in comfort measures (4) DNR (do not resuscitate)
--- NOTE | 2019-01-19 15:36 | CONSULT ---
Palliative / Hospice Consult Ordering Provider: Lani Briseno - PCP-Ros[facility] - Subjective Code Status: DNR Advance Directives Location: In Chart MOLST Part A Completed: Yes - on chart MOLST Part E Completed:: Yes - on chart - History or Present Illness History or Present Illness: 88 yo female with end stage Parkinson's disease s/p fall brought to ER unresponsive. Family had noted she had been declining, eating less and falling more. PMH is significant for depression and osteoporosis. Ekg nsr, Ct brain showed new hemorrhage. Spinal CT neg, Chest CT scapula fx middle LESIA old fracture 5th & 7th rib, H/H 11.3/34, BUN/Cr 39/1.05 egfr 49.3 tprot 7.3 and alb 3.9. Pt has been 71yrs and had 7 children 6 living and many grandchildren. All history is from medical records and family, pt is unable to communicate. Family elected to pursue comfort care measures. Lab Values: Abnormal Lab Results 01/18/19 01/18/19 01/18/19 19:01 19:01 19:01 WBC 11.1 H RBC 3.86 Hgb 11.3 L Hct 34 MCV 88 MCH 29 MCHC 33 RDW 15 Plt Count 245 MPV 8.4 Neut % (Auto) 79.1 Lymph % (Auto) 11.2 Cuming % (Auto) 7.8 Eos % (Auto) 1.1 Baso % (Auto) 0.8 Absolute Neuts (auto) 8.8 H Absolute Lymphs (auto) 1.2 Absolute Monos (auto) 0.9 H Absolute Eos (auto) 0.1 Absolute Basos (auto) 0.1 Absolute Nucleated RBC 0 Nucleated RBC % 0 INR (Anticoag Therapy) 0.94 APTT 25.4 L Sodium 139 Potassium 4.3 Chloride 104 Carbon Dioxide 26 Anion Gap 9 BUN 39 H Creatinine 1.05 H Est GFR ( Amer) 59.7 Est GFR (Non-Af Amer) 49.3 BUN/Creatinine Ratio 37.1 H Glucose 173 H POC Glucose (mg/dL) Lactic Acid Calcium 9.6 Total Bilirubin 0.40 AST 20 ALT 11 Alkaline Phosphatase 61 Troponin I 0.01 Total Protein 7.3 Albumin 3.9 Globulin 3.4 Albumin/Globulin Ratio 1.1 Triglycerides 98 Cholesterol 242 LDL Cholesterol 161 HDL Cholesterol 61.6 Blood Type Antibody Screen 01/18/19 01/18/19 01/18/19 19: 19: 19:01 WBC RBC Hgb Hct MCV MCH MCHC RDW Plt Count MPV Neut % (Auto) Lymph % (Auto) Cuming % (Auto) Eos % (Auto) Baso % (Auto) Absolute Neuts (auto) Absolute Lymphs (auto) Absolute Monos (auto) Absolute Eos (auto) Absolute Basos (auto) Absolute Nucleated RBC Nucleated RBC % INR (Anticoag Therapy) APTT Sodium Potassium Chloride Carbon Dioxide Anion Gap BUN Creatinine Est GFR ( Amer) Est GFR (Non-Af Amer) BUN/Creatinine Ratio Glucose POC Glucose (mg/dL) 171 H Lactic Acid 1.2 Calcium Total Bilirubin AST ALT Alkaline Phosphatase Troponin I Total Protein Albumin Globulin Albumin/Globulin Ratio Triglycerides Cholesterol LDL Cholesterol HDL Cholesterol Blood Type O Positive Antibody Screen Negative Laboratory Last Values WBC 11.1 10^3/uL (3.5-10.8) H 01/18/19 19: RBC 3.86 10^6 /uL (3.70-4.87) 01/18/19 19: Hgb 11.3 g/dL (12.0-16.0) L 01/18/19 19:01 Hct 34 % (33-41) 01/18/19 19: MCV 88 fL (80-97) 01/18/19 19: MCH 29 pg (27-31) 01/18/19 19:01 MCHC 33 g/dL (31-36) 01/18/19 19: RDW 15 % (10.5-15) 01/18/19 19:01 Plt Count 245 10^3/uL (150-450) 01/18/19 19:01 MPV 8.4 fL (7.4-10.4) 01/18/19 19:01 Neut % (Auto) 79.1 % 01/18/19 19: Lymph % (Auto) 11.2 % 01/18/19 19: Cuming % (Auto) 7.8 % 01/18/19 19:01 Eos % (Auto) 1.1 % 01/18/19 19: Baso % (Auto) 0.8 % 01/18/19 19: Absolute Neuts (auto) 8.8 10^3/ul (1.5-7.7) H 01/18/19 19:01 Absolute Lymphs (auto) 1.2 10^3/ul (1.0-4.8) 01/18/19 19: Absolute Monos (auto) 0.9 10^3/ul (0-0.8) H 01/18/19 19:01 Absolute Eos (auto) 0.1 10^3/ul (0-0.6) 01/18/19 19: Absolute Basos (auto) 0.1 10^3/ul (0-0.2) 01/18/19 19: Absolute Nucleated RBC 0 10^3/ul 01/18/19 19: Nucleated RBC % 0 01/18/19 19: INR (Anticoag Therapy) 0.94 (0.77-1.02) 01/18/19 19: APTT 25.4 seconds (26.0-36.3) L 01/18/19 19: Sodium 139 mmol/L (135-145) 01/18/19: Potassium 4.3 mmol/L (3.5-5.0) 01/18/19: Chloride 104 mmol/L (101-111) 01/18/19 19: Carbon Dioxide 26 mmol/L (22-32) 01/18/19 19: Anion Gap 9 mmol/L (2-11) 01/18/19 19: BUN 39 mg/dL (6-24) H 01/18/19 19: Creatinine 1.05 mg/dL (0.51-0.95) H 01/18/19 19: Est GFR ( Amer) 59.7 (>60) 01/18/19 19: Est GFR (Non-Af Amer) 49.3 (>60) 01/18/19 19: BUN/Creatinine Ratio 37.1 (8-20) H 01/18/19 19: Glucose 173 mg/dL (70-100) H 01/18/19 19: POC Glucose (mg/dL) 171 mg/dL (70-100) H 01/18/19 19: Lactic Acid 1.2 mmol/L (0.5-2.0) 01/18/19 19: Calcium 9.6 mg/dL (8.6-10.3) 01/18/19 19:01 Total Bilirubin 0.40 mg/dL (0.2-1.0) 01/18/19 19:01 AST 20 U/L (13-39) 01/18/19 19:01 ALT 11 U/L (7-52) 01/18/19 19:01 Alkaline Phosphatase 61 U/L (34-104) 01/18/19 19:01 Troponin I 0.01 ng/mL (<0.04) 01/18/19 19:01 Total Protein 7.3 g/dL (6.4-8.9) 01/18/19 19:01 Albumin 3.9 g/dL (3.2-5.2) 01/18/19 19:01 Globulin 3.4 g/dL (2-4) 01/18/19 19:01 Albumin/Globulin Ratio 1.1 (1-3) 01/18/19 19:01 Triglycerides 98 mg/dL 01/18/19 19:01 Cholesterol 242 mg/dL 01/18/19 19:01 LDL Cholesterol 161 mg/dL 01/18/19 19:01 HDL Cholesterol 61.6 mg/dL 01/18/19 19:01 Blood Type O Positive 01/18/19 19: Antibody Screen Negative 01/18/19 19:01 - Objective Active Medications: Acetaminophen (Tylenol Supp*) [address] Q4H PRN PRN Reason: FEVER Hydromorphone HCl (Dilaudid Inj1s*) 0.5 mg IV SLOW PU Q2H PRN PRN Reason: PAIN Last Admin: 01/19/19 12:16 Dose: 0.5 mg Lorazepam (Ativan Inj*) 0.5 mg IV PUSH Q4H PRN PRN Reason: Anxiety/Agitation Ondansetron HCl (Zofran Inj*) 4 mg IV Q6H PRN PRN Reason: NAUSEA/VOMITING Oxycodone HCl (Oxycodone Oral.Soln*) 5 mg PO Q6H PRN PRN Reason: Pain/SOB Pharmacy Profile Note (Scopolamine Patch Remove*) 1 note PATCH OFF .AFTER 72 HOURS BELL Scopolamine (Transderm-Scop 1.5 Mg Patch*) 1 patch TRANSDERM Q72H BELL Last Admin: 01/19/19 00:45 Dose: 1 patch Vital Signs: Vital Signs: Temp Pulse Resp BP Pulse Ox 99.7 F 76 22 113/60 92 01/19/19 08:36 01/18/19 23:50 01/19/19 13:01 01/18/19 23:50 01/18/19 23:50 Patient Weight: Weight 44.089 kg Intake and Output: Intake & Output 01/17/19 01/18/19 01/19/19 01/20/19 06:59 06:59 06:59 06:59 Intake Total 0 20 Balance 0 20 Weight 44.089 kg Intake: IV Fluids 20 ns 20 Oral 0 0 Other: Estimated Void Small ADLs: Meal Record Start: 01/18/19 23: 39 Freq: DAILY@0900,1400,1800 Status: Active Protocol: Created 01/18/19 23:39 System (Rec: 01/18/19 23:39 System MED-C07) Document 01/19/19 09:00 [id number] (Rec: 01/19/19 12:45 [id number] MED-C14) Document 01/19/19 14:00 [id number] (Rec: 01/19/19 14:54 [id number] MED-M01) Intake and Output Start: 01/18/19 23: 39 Freq: DAILY@0600,1400,2200 Status: Active Protocol: Created 01/18/19 23:39 System (Rec: 01/18/19 23:39 System MED-C07) Document 01/19/19 06:00 [id number] (Rec: 01/19/19 06:41 [id number] MED-C09) Document 01/19/19 13:06 [id number] (Rec: 01/19/19 13:06 [id number] MED-C09) Head: Normal Eyes: - - unable to assess Ears/Nose/Mouth/Throat: Mucous Membranes Moist Neck: NL Appearance and Movements; NL JVP Respiratory: Symmetrical Chest Expansion and Respiratory Effort Abdominal: - - abdomen soft and nondistended Neurological: - - patient is not arousable to voice or touch - Assessment Assessment: 88 yo female with end stage Parkinson's disease s/p fall with brain hemorrhage actively dying - Plan Consult Plan (MU): Palliative Plan: Spoke with family offered support. Educated family on signs and symptoms of dying. [facility]. Stressed to take breaks. Reinforced to to care for self and reach out if he needs help. Extended family supportive. Family expressed appreciation for the care their mom had received. KPS 10%, PPS 10% - Time On Unit Date of Evaluation: 01/19/19 Hospice Consult Time in: 02:30 Hospice Consult Time Out: 03:30 Hospice Consult Time Total: 60 > 50% of Time Spend In Counseling or Coordinating Care: Yes
--- NOTE | 2019-01-19 22:30 | CONS ---
CONSULTATION NOTE: DATE OF CONSULT: 01/18/19 HISTORY OF PRESENT ILLNESS: The patient is a very pleasant 88-year-old female with past medical history of Parkinson's, dementia, and osteoporosis who was reported to have sustained a fall on the day of her admission. The patient's reports that he heard her falling, so he went to see her and the patient was brought to the emergency room. According to her , the patient did not complain of any neck pain or back pain, but she had difficulty with her speech during the course of the day with right side gaze deviation. Requested to see the patient by Dr. Ramirez in the emergency room because of CT findings consistent with a large right temporal intracranial hemorrhage with midline shift. The patient had history of dementia and had very poor quality of life and functional status prior to her fall. The patient was in DNR/DNI status per Dr. Ramirez' report. Given the rapid deterioration of her clinical condition as well as the presence of a large lobar hemorrhage and her prior poor quality of life and her previous wishes, family placed patient on care and comfort without any further interventions. The patient was seen in the emergency room and discussed in extent with the family. PAST MEDICAL HISTORY: 1. Parkinson's. 2. Depression. 3. Osteoporosis. MEDICATIONS: The patient is on Seroquel, MiraLAX, Tylenol, Zoloft, vitamin D, aspirin 325 among others. ALLERGIES: ALBUTEROL, CAT DANDER, CLARITHROMYCIN, CODEINE, EPINEPHRINE, CONTRAST, MORPHINE, PENICILLIN, VIOXX, PETROLEUM. FAMILY HISTORY: Noncontributory. SOCIAL HISTORY: The patient has negative history for tobacco, alcohol, or illicit drug use. She lives with her at home with her 5 children. Healthcare proxy is her , Pb and her son, Quentni. PHYSICAL EXAMINATION: The patient is not in acute distress. She does not open her eyes to pain. She is nonverbal. She does not follow commands. Her pupils are equal and reactive. Face is symmetric. The patient minimally extends to pain with upper and lower extremities. There is no grimace to pain. Deep tendon reflexes +1 bilaterally. No clonus. Babinski positive bilaterally. DIAGNOSTIC STUDIES: The patient had the CT scan of brain revealing right temporal intracranial hemorrhage with significant midline shift and compression of the basal cisterns with smaller left side intraparenchymal hemorrhage. She had a CT of the cervical spine that did not reveal any evidence of fracture or subluxation. ASSESSMENT: The patient is a very pleasant 88-year-old female with recent fall with a large right temporal intraparenchymal hemorrhage extending to the frontal lobe. PLAN: The patient at this point has an ICH score of 4 points, which carries a 97% mortality. CT findings are suggestive of a lobar intraparenchymal hemorrhage that in combination with the patient's age and history of dementia, may represent amyloid angiopathy. Discussed in extent with the patient's family including her , sons, and daughter regarding imaging findings and the patient's neurological conditions. Based on her poor prognosis as well as the patient's wishes and prior poor quality of life, family decided to continue with care and comfort understanding the patient's prognosis. The patient will be admitted by Internal Medicine and for palliative care and comfort. Family understands the severity of the condition and the possible grave prognosis. Thank you very much for allowing us to participate in the care of this patient. Please do not hesitate to contact our office in case you have any further questions or concerns regarding the care of this patient. [id number]/CPS #: [id number] MTDEde
--- NOTE | 2019-01-19 23:37 | DS ---
CC: Dr. Ge Robbins * SUMMARY: DATE OF ADMISSION: 01/18/19 DATE OF : 01/19/19 PROVIDER: ARACELI Nicole ATTENDING PHYSICIAN: Dr. Barby Breen * (dictated by ARACELI Nicole). PRIMARY CARE PHYSICIAN: Dr. Ge Robbins. HOSPITAL COURSE: Ms. Christina Dawson was an 88-year-old female with past medical history of Parkinson's disease, depression, osteoporosis, who presented to the hospital on 01/18/19 complaining of left facial droop, slurred speech, and right gaze deviation. According to the , the patient had "an insignificant fall" around 5 p.m. prior to presentation. While the patient was in the emergency department, her neurological status began to deteriorate, which included the patient becoming more unresponsive, vomiting, and gurgling with respirations. CT of head confirmed a large hyperdense acute hematoma in the right cerebral hemisphere measuring 7.4 x 3.9 x 7.5 cm. The patient's family decided to make the patient comfort care at this time. The patient was admitted to the hospital and with comfort measures only. On the day of , the patient was comfortable and not showing signs of distress or pain, though unresponsive. Her respirations were within normal limits and without gurgling. She was prescribed IV Dilaudid and a scopolamine patch. At 1550, the patient was determined . The family did not have any questions at the time of exam. Palliative consult did occur during her hospital stay. The rn medical inpatient services, Dr. Isbell, was contacted regarding this as it occurred within 24 hours of admission and was due to fall in the home, though the family reports the patient did not have head trauma. Please see progress note from today regarding review of systems and physical exam from prior to . PHYSICAL EXAM AFTER : General: The patient is a white, elderly female lying in hospital bed with at bedside. Head: Normocephalic and atraumatic. ENT: Mucous membranes dry. Neck: No JVP. Cardio: No heart sounds auscultated. Respiratory: No spontaneous respirations. Neuro: The patient unresponsive. CONDITION ON DISCHARGE: . TIME SPENT: Approximately 35 minutes was spent with this discharge/ summary including time spent at bedside with the patient's family. ARACELI NICOLE [id number]/[facility] #: [id number] BAN
[2019-01-22] MEDS ORDERED: Scopolamine PATCH Remove* 1 NOTE MISC PATCH OFF SCH
== END 2019-01-19 15:50 | disposition expired | DRG 87 ==
LOC: ED 18:53 → MED 23:13
PROVIDERS: ADMIT Pediatrics; ATTEND Pediatrics
DX: S06.340A Traumatic hemorrhage of right cerebrum without loss of consciousness, initial encounter (principal); Z51.5 Encounter for palliative care; R40.2222 Coma scale, best verbal response, incomprehensible words, at arrival to emergency department; G20 Parkinson's disease; Z66 Do not resuscitate; M81.0 Age-related osteoporosis without current pathological fracture; R40.2362 Coma scale, best motor response, obeys commands, at arrival to emergency department; R40.2142 Coma scale, eyes open, spontaneous, at arrival to emergency department; E04.1 Nontoxic single thyroid nodule; F32.9 Major depressive disorder, single episode, unspecified; Z88.1 Allergy status to other antibiotic agents; Z91.041 Radiographic dye allergy status; Z88.5 Allergy status to narcotic agent; Z88.0 Allergy status to penicillin; Z88.8 Allergy status to other drugs, medicaments and biological substances; Z91.048 Other nonmedicinal substance allergy status; Z90.710 Acquired absence of both cervix and uterus; Z82.49 Family history of ischemic heart disease and other diseases of the circulatory system; Z90.49 Acquired absence of other specified parts of digestive tract; Z98.42 Cataract extraction status, left eye; Z98.41 Cataract extraction status, right eye; W19.XXXA Unspecified fall, initial encounter; Y92.009 Unspecified place in unspecified non-institutional (private) residence as the place of occurrence of the external cause
CPT/HCPCS: 36415; 70450; 71250; 72125; 80053; 80061; 83605; 84484; 85025; 85610; 85730; 86850; 86900; 86901; 93005; 99284; A9270-GY; J1170; J1953; J2405; J2765; J3490